=== PATIENT | female | born 1945 | race Caucasian/White ===

== ENCOUNTER 2022-10-05 10:38 | Outpatient (CLI) | payer MEDICARE, OTHER | END 2022-10-05 10:39 | disposition home or self-care (01) | LOC: CSHMAMMO 10:38 | PROVIDERS: ATTEND Internal Medicine | DX: Z12.31 Encounter for screening mammogram for malignant neoplasm of breast (principal); Z13.820 Encounter for screening for osteoporosis; Z78.0 Asymptomatic menopausal state; Z80.3 Family history of malignant neoplasm of breast | CPT/HCPCS: 77063; 77067; 77080 ==